=== PATIENT | female | born 1955 | race Caucasian/White ===

== ENCOUNTER → 2021-06-05 12:48 | Outpatient (CLI) | payer OTHER, SELFPAY ==
[2021-06-03 14:09] VITALS: BMI 20.8
== END ==
PROVIDERS: Referring Provider Physician Assistant Medical; Visit Provider Physician Assistant Medical
DX: I47.1 Supraventricular tachycardia (principal); R00.2 Palpitations
CPT/HCPCS: 93225; 93226

== ENCOUNTER 2022-10-05 14:42 | Outpatient (CLI) | payer MEDICARE, OTHER, SELFPAY ==
--- NOTE | 2022-10-05 14:45 | ECHOD_ITS ---
Reason For Study: PALPITATIONS Procedure This was a 2D Doppler, Color Flow transthoracic echocardiogram. Exam performed in department. Left Ventricle Normal LV size. Left ventricular systolic function is normal. Segmental dysfunction with preserved ejection fraction (see wall motion). The estimated ejection fraction is 60 %. Stage 1 diastolic dysfunction. Infero-Basal: Akinetic. Right Ventricle Normal RV size. Normal systolic function. Atria Normal left atrium. Normal right atrium. Hypermobile atrial septum. Bubble contrast study negative for right to left interatrial shunt. Mitral Valve Normal mitral valve. Mild (1+) eccentric mitral valve insufficiency. Tricuspid Valve Normal tricuspid valve. Mild tricuspid valve insufficiency. Pulmonary artery systolic pressure is 30 mmHg. Aortic Valve Trisinus/trileaflet aortic valve. Pulmonic Valve Normal pulmonic valve. Great Vessels Normal aortic root. The pulmonary artery is normal size. Normal inferior vena cava. Pericardium/Pleural No pericardial effusion. Medication 22 gauge I.V. with prn adaptor inserted into left arm. Performed a rapid injection of agitated mix of 9 cc saline and 1cc air to assess for atrial septal defect. MMode/2D Measurements & Calculations LVIDd: 4.6 cm IVSd: 0.54 cm Ao root diam: 3.4 cm LVIDs: 2.8 cm LVPWd: 0.70 cm RVDd: 3.1 cm FS: 40.1 % LAV(MOD-bp): 64.1 ml LVAd ap4: 27.0 cm2 SV(MOD-sp4): 52.3 ml LAV(MOD-bp) Indexed: 38.1 ml/m2 LVLd ap4: 7.6 cm LAV(MOD-sp2): 82.1 ml EDV(MOD-sp4): 79.8 ml LAV(MOD-sp4): 51.2 ml EDV(sp4-el): 81.2 ml LVAs ap4: 14.5 cm2 LVLs ap4: 6.3 cm ESV(MOD-sp4): 27.5 ml ESV(sp4-el): 28.4 ml EF(MOD-sp4): 65.6 % EF(sp4-el): 65.0 % SV(sp4-el): 52.8 ml LA A4 area: 19.4 cm2 LA dimension(2D): 3.2 cm RA A4 area: 19.4 cm2 Time Measurements MV dec time: 0.20 sec Doppler Measurements & Calculations MV E max jose: 82.1 cm/sec Lat Peak E' Jose: 9.2 cm/sec Med Peak E' Jose: 7.6 cm/sec MV A max jose: 86.0 cm/sec E/E' lat: 9.0 E/E' med: 10.9 MV E/A: 0.96 MV V2 max: 76.5 cm/sec MV dec slope: 407.5 cm/sec2 Ao V2 max: 144.5 cm/sec MV max P.3 mmHg Ao max P.4 mmHg MV V2 mean: 58.4 cm/sec Ao V2 mean: 103.9 cm/sec MV mean P.4 mmHg Ao mean P.9 mmHg MV V2 VTI: 25.5 cm Ao V2 VTI: 32.0 cm AV (velocity ratio): 0.88 LV V1 max: 133.6 cm/sec MR max jose: 520.3 cm/sec PA V2 max: 85.7 cm/sec LV V1 max P.1 mmHg MR max P.3 mmHg PA V2 mean: 65.9 cm/sec LV V1 mean P.0 mmHg LV V1 mean: 92.9 cm/sec LV V1 VTI: 28.2 cm TR max jose: 253.6 cm/sec TR max P.7 mmHg ECHO/Echo Complete Interpretation Summary Normal LV size. Left ventricular systolic function is normal. Segmental dysfunction with preserved ejection fraction (see wall motion). The estimated ejection fraction is 60 %. Stage 1 diastolic dysfunction. Hypermobile atrial septum. Pulmonary artery systolic pressure is 30 mmHg. Bubble contrast study negative for right to left interatrial shunt. Ordering Physician: Elisa Lozada Referring Physician: Elisa Lozada Performed By: Rebecca Arias RCS
== END 2022-10-05 23:59 | disposition home or self-care (01) ==
LOC: CVS 14:45
PROVIDERS: Referring Provider Physician Assistant Medical; Visit Provider Physician Assistant Medical
DX: I47.1 Supraventricular tachycardia (principal); R00.2 Palpitations
CPT/HCPCS: 93306; A4216

== ENCOUNTER 2022-10-06 12:09 | Outpatient (CLI) | payer MEDICARE, OTHER, SELFPAY | END 2022-10-06 23:59 | disposition home or self-care (01) | LOC: PSN 12:11 | PROVIDERS: PCP Internal Medicine; Referring Provider Physician Assistant Medical; Visit Provider Physician Assistant Medical | DX: I47.1 Supraventricular tachycardia (principal) | CPT/HCPCS: 93225; 93226 ==

== ENCOUNTER → 2022-11-09 | Outpatient (CLI) | payer MEDICARE, OTHER, SELFPAY ==
--- NOTE | 2022-11-09 19:01 | STRESSREP ---
Stress Test Report Exercise myocardial perfusion stress test. 67-year-old lady with a history of dyspnea on exertion and fatigue Stress protocol: Resting EKG demonstrates normal sinus rhythm with a rate of 66 bpm and frequent premature ventricular complexes, resting blood pressure is 102/78 mmHg. The patient exercised according to the regular Chandler protocol for a total duration of 5 minutes attaining a maximum heart rate of 150 bpm which was 99% of max impacted heart rate the maximum workload was 7 metabolic equivalents. At rest there were no ST or T wave changes noted suggest ischemia and at peak exercise upsloping ST changes only were noted we did not meet the criteria for ischemia. No clinical angina was noted the test was terminated due to the target heart rate being achieved. The peak blood pressure was 160/80 mmHg. Rate-pressure product was 21,500. Myocardial perfusion protocol. 12.0 mCi of technetium 99m sestamibi was injected at rest. The patient exercised according to regular Chandler protocol for total duration of 5 minutes and at peak exercise 36 mCi of technetium 99m sestamibi was injected stress images were obtained stress and rest images were reconstructed in comparing the short axis vertical long and horizontal long axis. Gated images were also obtained. Perfusion SPECT analysis: Review of the stress images demonstrate normal uptake of tracer noted in all areas of the myocardium. The resting images similarly demonstrate normal uptake of tracer noted in all areas of the myocardium. No areas of reversibility are noted to suggest ischemia no previous infarct was noted. A small apical defect was noted and an infarct cannot be completely excluded. Gated SPECT analysis: The gated ejection fraction is 51%. Conclusion: Normal exercise myocardial perfusion stress test at a moderate workload. Preserved ejection fraction.
== END | disposition home or self-care (01) ==
LOC: CVS 06:13
PROVIDERS: PCP Internal Medicine; Visit Provider Physician Assistant Medical
DX: R06.09 Other forms of dyspnea (principal); R53.83 Other fatigue
CPT/HCPCS: 78452; 93017; A9500; A4216

== ENCOUNTER → 2022-12-02 | Outpatient (CLI) | payer MEDICARE, OTHER, SELFPAY ==
[2022-12-02 17:02] LABS: Absolute Lymphocyte Count 0.88 X10^3/uL (0.83-4.51); Absolute Neutrophil Count 2.9 X10^3/uL (2.0-7.7); Basophil# 0.07 X10^3/uL; Basophil% 1.6 % (0-1); Eosinophil# 0.11 X10^3/uL; Eosinophils% 2.5 % (0-5); Hematocrit 34.5 % (37-47); Hemoglobin 10.5 g/dL (12.0-15.0); Lymphocyte # 0.88 X10^3/ul (0.83-4.51); Mean Corp Hgb Conc 30.4 g/dL (32-36); Mean Corpuscular Hgb 22.4 pg (27.0-32.0); Mean Corpuscular Volume 73.7 fL (81-99); Mean Platelet Vol. 10.3 fl (6.2-12.0); Monocyte# 0.41 X10^3/uL; Monocyte% 9.3 % (0-10); NRBC Flagged by Analyzer 0 % (0-5); Neutrophil # 2.92 X10^3/uL (2.7-7.7); Neutrophil % 66.4 % (47-70); Platelet Count 365 K/mm3 (150-450); RBC Distribution Width CV 15.6 % (11.6-14.6); RBC Distribution Width SD 41.5 fl (35.1-43.9); Red Blood Count 4.68 M/mm3 (4.2-5.4); White Blood Count 4.4 K/mm3 (4.4-11.0)
[2022-12-02 17:20] LABS: ALB/GLOB Ratio 1.1 RATIO (0.9-2.4); AST(SGOT) 17 U/L (15-37); Alanine Aminotransfer ALT/SGPT 18 U/L (13-56); Alkaline Phosphatase 69 U/L (45-117); Anion Gap 7 (5-15); BUN 20 mg/dL (7-18); BUN/Creat Ratio 23.1 RATIO (10-20); Calcium,Total 9.1 mg/dL (8.5-10.1); Chloride 105 mmol/L (98-107); Cholesterol 211 mg/dL (200); Creatinine, Serum 0.86 mg/dL (0.55-1.02); EST Glomerular Filtration Rate 69 mL/min (>60); Est Glom Filt Rate - Afr Amer 84 mL/min (>60); Globulin 3.8 g/dL (2.2-4.2); Glucose 91 mg/dL (74-106); High Density Lipoprotein 53 mg/dL; Potassium 3.9 mmol/L (3.5-5.1); Protein, Total 7.8 g/dL (6.4-8.2); Sodium Level 139 mmol/L (136-145); Triglycerides 101 mg/dL; Very Low Density Lipoprotein 20 mg/dL (5-40)
[2022-12-03 08:58] LABS: Ferritin 4 ng/mL (8-252); Iron 21 ug/dL (50-170); Iron Binding Capacity,Total 481 ug/dL (250-450)
== END | disposition home or self-care (01) ==
LOC: BIMLAB 14:54
PROVIDERS: PCP Internal Medicine; Referring Provider Internal Medicine; Visit Provider Internal Medicine
DX: I47.1 Supraventricular tachycardia (principal); D64.9 Anemia, unspecified; E78.5 Hyperlipidemia, unspecified
CPT/HCPCS: 36415; 80053; 80061; 82728; 83540; 83550; 85025

== ENCOUNTER → 2022-12-15 | Outpatient (CLI) | payer MEDICARE, OTHER, SELFPAY ==
--- NOTE | 2022-12-15 12:54 | BI_ITS ---
MAMMOGRAPHY - BILATERAL SCREENING REASON FOR EXAM: Female, 67 years old. Routine annual screening examination. PERTINENT HISTORY: Non-contributory. TECHNIQUE: Digital bilateral breast michael (3D mammographic acquisition) in the CC and MLO projections. 2-D mediolateral oblique (MLO) and craniocaudad (CC) views of both breasts were obtained. CAD: Full Field Digital Mammography with Computer Added Detection was performed. COMPARISON: None. Baseline examination. FINDINGS: Breast Composition: The breasts are extremely dense, which lowers the sensitivity of mammography. There are no dominant masses or suspicious calcifications. No other significant abnormalities are identified. BI/SCRN MAMM (CAD)W/MICHAEL BILAT IMPRESSION: Negative screening mammogram. Yearly followup mammogram recommended. (A) ASSESSMENT CATEGORY: BIRADS Category 1: Negative. A letter regarding these results will be sent to the patient by the facility within 30 days. Approximately 10% of breast cancers are not detected by mammography. A normal mammogram should not delay biopsy of a clinically suspicious abnormality. [id number] Electronically Signed: Alexander Lugo MD at 13:58 EST ,
--- NOTE | 2022-12-15 12:59 | BD_ITS ---
STUDY: DUAL ENERGY X-RAY ABSORPTIOMETRY / DXA REASON FOR EXAM: Female, 67 years old. Post - Menopausal TECHNIQUE: Bone Mineral Density (BMD) measurements of lumbar spine and bilateral hips were obtained. COMPARISON: None. FINDINGS: Lumbar Spine (L1-L4): g/cm2 (0.824) / T-score (-1.9) / Z-score (0.1) Findings are suggestive of osteopenia with a moderate fracture risk. Left Femur Total: g/cm2 (0.732) / T-score (-1.7) / Z-score (-0.3) Left Femoral Neck: g/cm2 (0.591) / T-score (-2.3) / Z-score (-0.6) Right Femur Total: g/cm2 (0.756) / T-score (-1.5) / Z-score (-0.1) Right Femoral Neck: g/cm2 (0.620) / T-score (-2.1) / Z-score (-0.3) BD/Dexa Bone Density Study IMPRESSION: The patient is considered osteopenic as outlined below according to World Rakesh Organization (WHO) criteria with a high fracture risk. Reference Information: The T-score is the number of standard deviations above or below the standard which is normal for young adults at their peak bone mineral density. The World Health Organization (WHO) interprets the T-scores as follows: Above -1 Normal bone density Between -1 and -2.5 Osteopenia Equal to / or below -2.5 Osteoporosis As a practical clinical guideline, osteopenia may be graded as follows: Mild -1 through -1.5 Moderate -1.6 through -2.0 Severe -2.1 through -2.4 The Z-score is the number of standard deviations above or below age-matched controls. A Z-score of less than -1.5 would be considered abnormal. References: 1. NIH Osteoporosis and Related Bone Diseases www osteo.org 2. International Society for Clinical Densitometry www iscd.org 3. National Osteoporosis Foundation www nof.org Electronically Signed: Alexander Lugo MD at 14:52 EST ,
== END | disposition home or self-care (01) ==
LOC: OPBD 12:52
PROVIDERS: PCP Internal Medicine; Referring Provider Internal Medicine; Visit Provider Internal Medicine
DX: Z12.31 Encounter for screening mammogram for malignant neoplasm of breast (principal); Z78.0 Asymptomatic menopausal state; N95.9 Unspecified menopausal and perimenopausal disorder
CPT/HCPCS: 77063; 77067; 77080

== ENCOUNTER → 2022-12-28 | Outpatient (CLI) | payer MEDICARE, OTHER, SELFPAY ==
[2022-12-28 12:33] LABS: Vitamin D,25 Hydroxy 23.2 ng/mL
== END | disposition home or self-care (01) ==
LOC: BIMLAB 09:06
PROVIDERS: PCP Internal Medicine; Visit Provider Internal Medicine
DX: M85.80 Other specified disorders of bone density and structure, unspecified site (principal)
CPT/HCPCS: 36415; 82306

== ENCOUNTER → 2023-03-31 | Outpatient (CLI) | payer MEDICARE, OTHER, SELFPAY ==
[2023-03-31 12:50] LABS: Absolute Lymphocyte Count 0.82 X10^3/uL (0.83-4.51); Absolute Neutrophil Count 2.9 X10^3/uL (2.0-7.7); Basophil# 0.06 X10^3/uL; Basophil% 1.4 % (0-1); Eosinophil# 0.11 X10^3/uL; Eosinophils% 2.6 % (0-5); Hematocrit 38.4 % (37-47); Hemoglobin 12.2 g/dL (12.0-15.0); Lymphocyte # 0.82 X10^3/ul (0.83-4.51); Lymphocyte % 19.2 % (19-41); Mean Corp Hgb Conc 31.8 g/dL (32-36); Mean Corpuscular Hgb 26.3 pg (27.0-32.0); Mean Corpuscular Volume 82.8 fL (81-99); Mean Platelet Vol. 10.5 fl (6.2-12.0); Monocyte# 0.42 X10^3/uL; Monocyte% 9.8 % (0-10); NRBC Flagged by Analyzer 0 % (0-5); Neutrophil # 2.85 X10^3/uL (2.7-7.7); Neutrophil % 66.8 % (47-70); Platelet Count 288 K/mm3 (150-450); RBC Distribution Width CV 17.3 % (11.6-14.6); Red Blood Count 4.64 M/mm3 (4.2-5.4); White Blood Count 4.3 K/mm3 (4.4-11.0)
[2023-03-31 13:23] LABS: Anion Gap 5 (5-15); BUN 12 mg/dL (7-18); BUN/Creat Ratio 13.1 RATIO (10-20); Calcium,Total 9.1 mg/dL (8.5-10.1); Chloride 107 mmol/L (98-107); Creatinine, Serum 0.92 mg/dL (0.55-1.02); EST Glomerular Filtration Rate 65 mL/min (>60); Est Glom Filt Rate - Afr Amer 78 mL/min (>60); Glucose 90 mg/dL (74-106); Potassium 4.2 mmol/L (3.5-5.1); Sodium Level 138 mmol/L (136-145)
== END | disposition home or self-care (01) ==
LOC: BIMLAB 10:50
PROVIDERS: PCP Internal Medicine; Visit Provider Internal Medicine
DX: D64.9 Anemia, unspecified (principal); M85.80 Other specified disorders of bone density and structure, unspecified site
CPT/HCPCS: 36415; 80048; 85025

== ENCOUNTER → 2023-12-08 | Outpatient (CLI) | payer MEDICARE, OTHER, SELFPAY ==
[2023-12-08 11:15] LABS: Absolute Lymphocyte Count 0.91 X10^3/uL (0.83-4.51); Absolute Neutrophil Count 3.2 X10^3/uL (2.0-7.7); Basophil# 0.04 X10^3/uL; Basophil% 0.9 % (0-1); Eosinophils% 2.1 % (0-5); Hematocrit 40.4 % (37-47); Hemoglobin 13.7 g/dL (12.0-15.0); Lymphocyte # 0.91 X10^3/ul (0.83-4.51); Lymphocyte % 19.5 % (19-41); Mean Corp Hgb Conc 33.9 g/dL (32-36); Mean Corpuscular Hgb 30.6 pg (27.0-32.0); Mean Corpuscular Volume 90.4 fL (81-99); Monocyte# 0.45 X10^3/uL; Monocyte% 9.6 % (0-10); NRBC Flagged by Analyzer 0 % (0-5); Neutrophil # 3.16 X10^3/uL (2.7-7.7); Neutrophil % 67.7 % (47-70); Platelet Count 305 K/mm3 (150-450); RBC Distribution Width CV 12.3 % (11.6-14.6); RBC Distribution Width SD 40.6 fl (35.1-43.9); Red Blood Count 4.47 M/mm3 (4.2-5.4); White Blood Count 4.7 K/mm3 (4.4-11.0)
[2023-12-08 13:24] LABS: Anion Gap 4 (5-15); BUN 11 mg/dL (7-18); Chloride 107 mmol/L (98-107); Creatinine, Serum 0.85 mg/dL (0.55-1.02); EST Glomerular Filtration Rate 70 mL/min (>60); Est Glom Filt Rate - Afr Amer 85 mL/min (>60); Glucose 101 mg/dL (74-106); Potassium 3.8 mmol/L (3.5-5.1); Sodium Level 137 mmol/L (136-145)
[2023-12-08 13:25] LABS: Vitamin D,25 Hydroxy 29.4 ng/mL
== END | disposition home or self-care (01) ==
LOC: BIMLAB 10:11
PROVIDERS: PCP Internal Medicine; Referring Provider Internal Medicine; Visit Provider Internal Medicine
DX: M85.80 Other specified disorders of bone density and structure, unspecified site (principal); D64.9 Anemia, unspecified
CPT/HCPCS: 36415; 80048; 82306; 85025

== ENCOUNTER → 2024-04-24 | Outpatient (CLI) | payer MEDICARE, OTHER, SELFPAY ==
--- NOTE | 2024-04-24 14:00 | MRI_ITS ---
HISTORY: Left-sided worse pain x 1 month. TECHNIQUE: Multiplanar and multisequence MR images of the lumbar spine were obtained without intravenous contrast. 183 images. COMPARISON: 03/29/2024. FINDINGS: VERTEBRAE: Vertebral body heights maintained. Degenerative bone marrow endplate changes at multiple levels, particularly L2-3. ALIGNMENT: No anterior or posterior subluxation. Mild scoliosis. CONUS: Normal morphology and position of the conus medullaris at the lower L1 level. INTERVERTEBRAL DISCS: T12-L1: Mild disc bulge without significant central canal stenosis or foraminal narrowing. L1-2: Mild disc bulge and facet arthropathy resulting in mild bilateral foraminal narrowing. No significant central canal stenosis. L2-3: Mild disc bulge with facet arthropathy resulting in mild-moderate bilateral foraminal narrowing with left L2 nerve root impingement. No significant central canal stenosis. L3-4: Moderate disc protrusion and facet arthropathy resulting in right L4 nerve root abutment, mild central canal stenosis, mild right, and moderate left foraminal narrowing with left L3 nerve root abutment. L4-5: Mild disc bulge with facet arthropathy resulting in minimal narrowing of the thecal sac, moderate right foraminal narrowing with right L4 nerve root abutment, and mild left foraminal narrowing. L5-S1: No significant posterior disc protrusion, central canal stenosis, or foraminal narrowing. SOFT TISSUES: Round hypointense uterine lesions. MRI/Spine Lumbar (Routine) IMPRESSION: Multilevel degenerative disc disease resulting in mild spinal canal stenosis, nerve root abutment/impingement, and bilateral foraminal narrowing as above. Leiomyomatous uterus. Electronically Signed: Mary Justice MD at 12:02 EDT ,
== END | disposition home or self-care (01) ==
LOC: MRI 13:03
PROVIDERS: PCP Internal Medicine; Referring Provider Orthopaedic Surgery Orthopaedic Surgery of the Spine; Visit Provider Orthopaedic Surgery Orthopaedic Surgery of the Spine
DX: M54.16 Radiculopathy, lumbar region (principal); M21.372 Foot drop, left foot
CPT/HCPCS: 72148